=== PATIENT | male | born 1965 | race Caucasian/White ===

== ENCOUNTER 2022-01-30 20:59 | Emergency (ER) | payer OTHER, SELFPAY | END 2022-01-30 22:20 | disposition home or self-care (01) | LOC: ERS 20:59 | DX: H93.8X2 Other specified disorders of left ear (principal); F17.210 Nicotine dependence, cigarettes, uncomplicated | CPT/HCPCS: 99282 ==

== ENCOUNTER 2022-05-09 22:42 | Emergency (ER) | payer SELFPAY ==
[2022-05-10] MEDS ORDERED: cefTRIAXone\\ROCEPHIN 500 MG VIAL ONE (00:55)
[2022-05-10] MEDS ORDERED: Lidocaine 1% MPF 2 ML VIAL ONE (00:55)
[2022-05-10 01:30] LABS: Bilirubin Negative (Negative); Blood, Urine 1+ (Negative); Clarity Turbid (Clear); Glucose, Urine (Dipstick) Normal (Negative); Ketone, Urine Trace mg/dL (Negative); Leukocyte 500 Leu/uL (Negative); Nitrite Negative (Negative); Protein, Urine (Dipstick) 20 mg/dL (Neg-Trace); Specific Gravity, Urine 1.029 (1.002-1.036); Squamous Epithelial 0-3 HPF (0-3); Urobilinogen Normal mg/dL (Less than 2); WBC/HPF Greater than 50 HPF (0-3)
[2022-05-10 01:32] LABS: Bacteria/HPF 1+ HPF (None Seen); Sperm/HPF Rare HPF (None Seen)
[2022-05-10 12:39] LABS: Chlam.trachomatis by PCR,Urine Not Detected (NotDetected)
== END 2022-05-10 01:21 | disposition home or self-care (01) ==
LOC: ERS 22:42
DX: R36.9 Urethral discharge, unspecified (principal); F17.210 Nicotine dependence, cigarettes, uncomplicated
CPT/HCPCS: 81003; 81015; 87086; 87491; 87591; 96372; 99283; J0696

== ENCOUNTER 2023-07-21 20:16 | Inpatient (IN) | payer OTHER, SELFPAY ==
[~2023-07-21 20:16] MED LIST: Iopamidol-370 76% 500 ML MDV (1 ML CHARGE) ONE
[2023-07-21 20:54] LABS: #Eosinphils 0.2 thou/uL (0.0-0.7); #Monocytes 1.3 thou/uL (0.11-0.59); #Neutrophils 7.7 thou/uL (1.40-6.50); %Basophils 0.3 % (0.0-1.0); %Eosinophils 1.6 % (0.0-10.0); %Lymphocytes 20.1 % (21.0-51.0); %Monocytes 11.5 % (0.0-10.0); %Neutrophils 66.2 % (42.0-75.0); Hematocrit 41.2 % (42.0-52.0); Hemoglobin 14.1 g/dL (14.0-18.0); Mean Corpuscular HGB CONC 34.2 g/dL (32.0-36.0); Mean Corpuscular Volume 90.5 fl (78.0-98.0); Mean Platelet Volume 10.4 fL (7.4-10.4); Platelet Count 257 10x3/uL (130-400); RBC Distribution Width 12.9 % (11.5-14.5); Red Blood Cell (RBC) Count 4.55 mill/uL (4.70-6.10); White Blood Cell (WBC) Count 11.6 10x3/uL (4.8-10.8)
[2023-07-21] MEDS ORDERED: Morphine 4 MG/ML VIAL ONE (21:02)
[2023-07-21] MEDS ORDERED: Ketorolac Tromethamine 30 MG (1 mL) VIAL ONE (21:03)
[2023-07-21] MEDS ORDERED: Ondansetron PF 4 MG/2 ML Vial ONE (21:03)
[2023-07-21 21:07] LABS: INR-International Normal Ratio 1.1; PTT 32.5 sec (22.9-36.1); Prothrombin Time 14.1 sec (12.0-14.7)
[2023-07-21 21:19] LABS: ALT (SGPT) 9 U/L (8-55); AST (SGOT) 9 U/L (5-34); Albumin 4.5 g/dL (3.5-5.0); Alkaline Phosphatase 65 U/L (40-110); Anion Gap 13 mmol/L (10-20); BUN (Urea Nitrogen) 11 mg/dL (8.4-25.7); Bilirubin, Total 0.7 mg/dL (0.2-1.2); Calc. Creatinine Clearance 0 mL/min (70-130); Calcium 8.8 mg/dL (7.8-10.44); Carbon Dioxide 27 mmol/L (22-29); Chloride 104 mmol/L (98-107); Estimated GFR 99; Globulin 2.7 g/dL (2.4-3.5); Glucose 123 mg/dL (70-105); Lipase 16 U/L (8-78); Potassium 4.1 mmol/L (3.5-5.1); Protein, Total 7.2 g/dL (6.0-8.3); Sodium 140 mmol/L (136-145)
[2023-07-22] MEDS ORDERED: Ondansetron PF 4 MG/2 ML Vial ONE ×2 (00:24→19:25)
[2023-07-22] MEDS ORDERED: Morphine 4 MG/ML VIAL ONE ×2 (00:24→01:22)
[2023-07-22 00:53] LABS: Bacteria/HPF None Seen HPF (None Seen); Bilirubin Negative (Negative); Blood, Urine Negative (Negative); CAUTI Indications for Culture Dysuria,urgency,freq; Clarity Clear (Clear); Glucose, Urine (Dipstick) Normal (Negative); Ketone, Urine Negative (Negative); Leukocyte Negative Leu/uL (Negative); Nitrite Negative (Negative); Protein, Urine (Dipstick) Negative (Neg-Trace); RBC/HPF 0-3 HPF (0-3); Squamous Epithelial None Seen HPF (0-3); Urobilinogen Normal mg/dL (Less than 2); WBC/HPF 0-3 HPF (0-3); pH, Urine 5.5 (5.0-9.0)
[2023-07-22 00:54] LABS: Specific Gravity, Urine 1.044 (1.002-1.036)
[2023-07-22 00:55] LABS: Urine Culture Reflex No No
[2023-07-22] MEDS ORDERED: diphenhydrAMINE 50 MG/ML VIAL ONE (01:22)
[2023-07-22] MEDS ORDERED: Piperacillin/Tazobactam 3.375 GM VIAL ONE (01:22)
[2023-07-22] MEDS ORDERED: Sodium Chloride 0.9% 100 ML ONE (01:24)
[2023-07-22 03:28] VITALS: BMI 25.8
[2023-07-22] MEDS ORDERED: diphenhydrAMINE 50 MG/ML VIAL IVP PRN (03:57)
[2023-07-22] MEDS ORDERED: Ondansetron PF 4 MG/2 ML Vial IVP PRN (04:00)
[2023-07-22] MEDS ORDERED: Ondansetron ODT 4 MG TAB SL PRN (04:00)
[2023-07-22] MEDS: Lactated Ringer's 1,000 ML IV SCH ×2 (04:08→17:47)
[2023-07-22] MEDS: Morphine 4 MG/ML VIAL SLOW IVP PRN ×2 (04:40→08:28)
[2023-07-22 05:40] LABS: #Monocytes 1.6 thou/uL (0.11-0.59); #Neutrophils 11.1 thou/uL (1.40-6.50); %Basophils 0.1 % (0.0-1.0); %Eosinophils 0.1 % (0.0-10.0); %Lymphocytes 8.9 % (21.0-51.0); %Monocytes 11.7 % (0.0-10.0); %Neutrophils 78.9 % (42.0-75.0); Hematocrit 36.6 % (42.0-52.0); Hemoglobin 12.5 g/dL (14.0-18.0); Mean Corpuscular HGB CONC 34.2 g/dL (32.0-36.0); Mean Corpuscular Volume 90.8 fl (78.0-98.0); Mean Platelet Volume 10.2 fL (7.4-10.4); Platelet Count 239 10x3/uL (130-400); RBC Distribution Width 13.1 % (11.5-14.5); Red Blood Cell (RBC) Count 4.03 mill/uL (4.70-6.10)
[2023-07-22 06:30] LABS: ALT (SGPT) 15 U/L (8-55); AST (SGOT) 20 U/L (5-34); Albumin 3.9 g/dL (3.5-5.0); Alkaline Phosphatase 60 U/L (40-110); Anion Gap 11 mmol/L (10-20); BUN (Urea Nitrogen) 10 mg/dL (8.4-25.7); Bilirubin, Total 1.1 mg/dL (0.2-1.2); Calc. Creatinine Clearance 129 mL/min (70-130); Calcium 8.6 mg/dL (7.8-10.44); Carbon Dioxide 26 mmol/L (22-29); Chloride 104 mmol/L (98-107); Estimated GFR 104; Globulin 2.9 g/dL (2.4-3.5); Glucose 125 mg/dL (70-105); Potassium 3.8 mmol/L (3.5-5.1); Protein, Total 6.8 g/dL (6.0-8.3); Sodium 137 mmol/L (136-145)
[2023-07-22] MEDS ORDERED: Piperacillin/Tazobactam 3.375 GM in Sodium Chloride 0.9% 100 ML IVPB SCH ×2 (08:00→22:00)
[2023-07-22] MEDS ORDERED: traMADol HCl 50 MG TAB PO PRN (08:09)
[2023-07-22] MEDS: Acetaminophen 325 MG TAB PO SCH ×3 (08:28→22:25)
[2023-07-22] MEDS: traMADol HCl 50 MG TAB PO SCH ×2 (11:10→17:48)
[2023-07-22] MEDS ORDERED: Morphine 4 MG/ML VIAL SLOW IVP SCH (13:30)
[2023-07-22] MEDS ORDERED: fentaNYL 50 mcg/mL 1 mL Vial ONE ×2 (18:55→18:58)
[2023-07-22] MEDS ORDERED: EPINEPHrine 1 MG/ML VIAL ONE (19:16)
[2023-07-22] MEDS ORDERED: Bupivacaine 0.25% HCL 30 ML VIAL ONE (19:16)
[2023-07-22] MEDS ORDERED: Rocuronium Bromide 10 MG/ML (10ML VIAL) ONE (19:24)
[2023-07-22] MEDS ORDERED: Lidocaine 2% PF 5 ML VIAL ONE (19:24)
[2023-07-22] MEDS ORDERED: PROPOFOL 20 ML ONE (19:24)
[2023-07-22] MEDS ORDERED: Dexamethasone 20 MG/5 ML VIAL ONE (19:25)
[2023-07-22] MEDS ORDERED: Fentanyl 250 MCG/5 ML VIAL ONE (19:25)
[2023-07-22] MEDS ORDERED: SUCCINYLCHOLINE/SOD CL,ISO/PF 200 MG/10 ML SYRINGE FS ONE (19:41)
[2023-07-22] MEDS ORDERED: Albuterol HFA (OR) 200 PUFF INH ONE ×2 (19:48→19:55)
[2023-07-22] MEDS ORDERED: PHENYLEPHRINE-NS 100 MCG/ML 10 ML SYRINGE ONE (19:51)
[2023-07-22] MEDS ORDERED: SUGAMMADEX SODIUM 200 MG/2 ML VIAL ONE (21:06)
[2023-07-22] MEDS ORDERED: PACU-Morphine 4MG/ML VIAL SLOW IVP PRN (21:12)
[2023-07-22] MEDS ORDERED: Ondansetron HCl/PF 4 MG/2 ML Vial IVP PRN (21:12)
[2023-07-22] MEDS ORDERED: Promethazine HCl 25 MG/ML VIAL IM PRN (21:12)
[2023-07-23] MEDS: traMADol HCl 50 MG TAB PO SCH ×5 (00:14→23:47)
[2023-07-23] MEDS: Ibuprofen 200 MG TAB PO PRN ×3 (00:15→23:45)
[2023-07-23] MEDS: Piperacillin/Tazobactam 3.375 GM in Sodium Chloride 0.9% 100 ML IVPB SCH ×3 (02:39→17:14)
[2023-07-23] MEDS: Acetaminophen 325 MG TAB PO SCH ×4 (02:42→20:08)
[2023-07-23 05:28] LABS: #Neutrophils 18.8 thou/uL (1.40-6.50); %Basophils 0.1 % (0.0-1.0); %Lymphocytes 3.4 % (21.0-51.0); %Monocytes 4.6 % (0.0-10.0); %Neutrophils 91.2 % (42.0-75.0); Hematocrit 35.5 % (42.0-52.0); Mean Corpuscular HGB CONC 33.8 g/dL (32.0-36.0); Mean Corpuscular Hemoglobin 31.1 pg (27.0-31.0); Mean Platelet Volume 10.2 fL (7.4-10.4); Platelet Count 228 10x3/uL (130-400); RBC Distribution Width 13.2 % (11.5-14.5); Red Blood Cell (RBC) Count 3.86 mill/uL (4.70-6.10); White Blood Cell (WBC) Count 20.6 10x3/uL (4.8-10.8)
[2023-07-23 05:54] LABS: ALT (SGPT) 39 U/L (8-55); AST (SGOT) 44 U/L (5-34); Albumin 3.4 g/dL (3.5-5.0); Alkaline Phosphatase 60 U/L (40-110); Anion Gap 12 mmol/L (10-20); BUN (Urea Nitrogen) 13 mg/dL (8.4-25.7); Bilirubin, Total 1.4 mg/dL (0.2-1.2); Calc. Creatinine Clearance 107 mL/min (70-130); Calcium 8.4 mg/dL (7.8-10.44); Carbon Dioxide 25 mmol/L (22-29); Chloride 102 mmol/L (98-107); Estimated GFR 96; Glucose 174 mg/dL (70-105); Potassium 3.9 mmol/L (3.5-5.1); Protein, Total 6.4 g/dL (6.0-8.3); Sodium 135 mmol/L (136-145)
[2023-07-23] MEDS: Saccharomyces boulardii 250 MG CAP PO SCH (09:02)
[2023-07-24] MEDS: Piperacillin/Tazobactam 3.375 GM in Sodium Chloride 0.9% 100 ML IVPB SCH ×2 (02:24→09:48)
[2023-07-24] MEDS: Acetaminophen 325 MG TAB PO SCH ×4 (02:25→20:56)
[2023-07-24 06:01] LABS: #Monocytes 1.1 thou/uL (0.11-0.59); #Neutrophils 12.9 thou/uL (1.40-6.50); %Basophils 0.1 % (0.0-1.0); %Eosinophils 0.1 % (0.0-10.0); %Monocytes 6.8 % (0.0-10.0); %Neutrophils 82.5 % (42.0-75.0); Hematocrit 30.7 % (42.0-52.0); Hemoglobin 10.4 g/dL (14.0-18.0); Mean Corpuscular HGB CONC 33.9 g/dL (32.0-36.0); Mean Corpuscular Hemoglobin 31.3 pg (27.0-31.0); Mean Corpuscular Volume 92.5 fl (78.0-98.0); Mean Platelet Volume 10.3 fL (7.4-10.4); Platelet Count 238 10x3/uL (130-400); RBC Distribution Width 13.2 % (11.5-14.5); Red Blood Cell (RBC) Count 3.32 mill/uL (4.70-6.10); White Blood Cell (WBC) Count 15.6 10x3/uL (4.8-10.8)
[2023-07-24] MEDS: Ibuprofen 200 MG TAB PO PRN ×2 (06:26→21:19)
[2023-07-24 06:27] LABS: ALT (SGPT) 34 U/L (8-55); AST (SGOT) 33 U/L (5-34); Albumin 3.3 g/dL (3.5-5.0); Alkaline Phosphatase 56 U/L (40-110); Anion Gap 11 mmol/L (10-20); BUN (Urea Nitrogen) 19 mg/dL (8.4-25.7); Bilirubin, Total 0.7 mg/dL (0.2-1.2); Calc. Creatinine Clearance 107 mL/min (70-130); Carbon Dioxide 26 mmol/L (22-29); Chloride 104 mmol/L (98-107); Estimated GFR 96; Globulin 2.6 g/dL (2.4-3.5); Glucose 129 mg/dL (70-105); Protein, Total 5.9 g/dL (6.0-8.3); Sodium 137 mmol/L (136-145)
[2023-07-24] MEDS: traMADol HCl 50 MG TAB PO SCH ×4 (06:29→23:45)
[2023-07-24] MEDS: Saccharomyces boulardii 250 MG CAP PO SCH (08:04)
[2023-07-24] MEDS ORDERED: Cipro 250 MG TAB PO SCH (20:00)
[2023-07-24] MEDS: Ciprofloxacin 500 MG TAB PO SCH (20:55)
[2023-07-24] MEDS: metroNIDAZOLE 500 MG TAB PO SCH (20:57)
[2023-07-24] MEDS: Senokot S 8.6-50 MG TAB PO SCH (20:57)
[2023-07-25] MEDS: Acetaminophen 325 MG TAB PO SCH ×2 (03:23→08:24)
[2023-07-25] MEDS: Ciprofloxacin 500 MG TAB PO SCH (05:48)
[2023-07-25] MEDS: traMADol HCl 50 MG TAB PO SCH ×2 (05:49→12:07)
[2023-07-25] MEDS: Ibuprofen 200 MG TAB PO PRN (06:08)
[2023-07-25 06:21] LABS: #Eosinphils 0.3 thou/uL (0.0-0.7); #Monocytes 0.8 thou/uL (0.11-0.59); #Neutrophils 5.1 thou/uL (1.40-6.50); %Basophils 0.4 % (0.0-1.0); %Eosinophils 3.1 % (0.0-10.0); %Lymphocytes 31.5 % (21.0-51.0); %Monocytes 8.5 % (0.0-10.0); %Neutrophils 56.2 % (42.0-75.0); Hematocrit 31.4 % (42.0-52.0); Hemoglobin 10.4 g/dL (14.0-18.0); Mean Corpuscular HGB CONC 33.1 g/dL (32.0-36.0); Mean Corpuscular Volume 93.5 fl (78.0-98.0); Mean Platelet Volume 10.5 fL (7.4-10.4); Platelet Count 294 10x3/uL (130-400); RBC Distribution Width 13.5 % (11.5-14.5); Red Blood Cell (RBC) Count 3.36 mill/uL (4.70-6.10)
[2023-07-25 08:21] VITALS: TEMP 97.7
[2023-07-25] MEDS: Senokot S 8.6-50 MG TAB PO SCH (08:24)
[2023-07-25] MEDS: Saccharomyces boulardii 250 MG CAP PO SCH (08:24)
[2023-07-25] MEDS: metroNIDAZOLE 500 MG TAB PO SCH (08:24)
[2023-07-25] MEDS ORDERED: Polyethylene Glycol 3350 17 GM Packet PO SCH (09:00)
[2023-07-25 11:51] VITALS: BP 152/84
== END 2023-07-25 12:16 | DRG 419 ==
LOC: ERS 20:16 → T4-B 07-22 01:52 → EEVIPCON 07-22 01:52 → T4-B 07-22 03:10
PROVIDERS: ADMIT Student in an Organized Health Care Education/Training Program; ATTEND Student in an Organized Health Care Education/Training Program
PROC: 0FT44ZZ Resection of Gallbladder, Percutaneous Endoscopic Approach (ICD-10-PCS; principal; 2023-07-22)
DX: K81.0 Acute cholecystitis (principal); Z88.1 Allergy status to other antibiotic agents; Z90.89 Acquired absence of other organs; Z98.890 Other specified postprocedural states; Z87.891 Personal history of nicotine dependence; K82.A1 Gangrene of gallbladder in cholecystitis
CPT/HCPCS: 36415; 74177; 76705; 80053; 83605; 83690; 85025; 85610; 85730; 88304; 93005; 94760; 96361; 96365; 96375; 96376; C1889; J0171; J0665; J1100; J1200; J1885; J2001; J2270; J2405; J2543; J2704; J3010; J3490; J7120; Q9967

== ENCOUNTER 2025-02-19 03:40 | Emergency (ER) | payer SELFPAY ==
[2025-02-19 04:32] LABS: #Basophils 0.04 10x3/uL (0.0-0.2); #Eosinophils 0.17 10x3/uL (0.0-0.7); #Monocytes 0.93 10x3/uL (0.11-0.59); #Neutrophils 5.42 10x3/uL (1.40-6.50); %Basophils 0.5 % (0.0-1.0); %Eosinophils 2.0 % (0.0-10.0); %Lymphocytes 22.7 % (21.0-51.0); %Monocytes 10.9 % (0.0-10.0); %Neutrophils 63.7 % (42.0-75.0); Hematocrit 37.4 % (42.0-52.0); Hemoglobin 12.0 g/dL (14.0-18.0); Mean Corpuscular Hemoglobin 27.9 pg (27.0-31.0); Mean Corpuscular Volume 87.0 fL (78.0-98.0); Platelet Count 383 10x3/uL (130-400); Red Blood Cell (RBC) Count 4.30 mill/uL (4.70-6.10); White Blood Cell (WBC) Count 8.51 10x3/uL (4.8-10.8)
[2025-02-19 04:47] LABS: ALT (SGPT) 11 U/L (Less than 45); AST (SGOT) 15 U/L (11-34); Albumin 3.3 g/dL (3.1-4.5); Alkaline Phosphatase 78 U/L (40-110); Anion Gap 17 mmol/L (10-20); BUN (Urea Nitrogen) 16 mg/dL (8.4-25.7); Bilirubin, Total 0.4 mg/dL (0.3-1.2); Calc. Creatinine Clearance 0 mL/min (70-130); Calcium 9.3 mg/dL (7.8-10.44); Carbon Dioxide 27 mmol/L (22-29); Chloride 99 mmol/L (98-107); Globulin 4.2 g/dL (2.4-3.5); Glucose 116 mg/dL (70-105); Lipase 30 U/L (8-78); Potassium 3.6 mmol/L (3.5-5.1); Sodium 139 mmol/L (136-145)
[2025-02-19] MEDS ORDERED: Ketorolac Tromethamine 30 MG (1 mL) VIAL ONE (05:22)
[2025-02-19] MEDS ORDERED: Iopamidol 370 76% 100 ML VIAL ONE (16:00)
== END 2025-02-19 06:19 ==
LOC: ERS 03:40
DX: R10.9 Unspecified abdominal pain (principal); M79.89 Other specified soft tissue disorders; Z79.899 Other long term (current) drug therapy
CPT/HCPCS: 74177; 80053; 83605; 83690; 85025; 87040; 96374; J1885